=== PATIENT | female | born 1970 | race Two or more races ===

== ENCOUNTER 2024-11-22 11:58 | Emergency (ER) | payer MEDICARE, MEDICAID ==
[~2024-11-22] VITALS: Ht 149.9 cm; Wt 96.9 kg
[2024-11-22 12:07] VITALS: BP 111/68; PULSE 74; RESP 18; TEMP 98.3; O2SAT 95
--- NOTE | 2024-11-22 14:40 | ED.PDOC ---
History of Present Illness HPI Comments 54 year old female presents to the ED with a chief complaint of head injury s/p fall onset last night around 22:30. Patient states went to the restroom, was dizzy, fell backwards onto her back, hit LT side head. She is currently experiencing headache, back pain, generalized muscle aches. PMHx vertigo. Robert es any LOC, nausea, vomiting, diarrhea, fever, chills, dysuria, hematuria, chest pain, shortness of breath. No other symptoms or modifying factors present at this time. Chief Complaint: Fall Injury Time Seen by MD: 14:40 Reviewed Notes: Medications, Allergies Allergies: Coded Allergies: NO KNOWN ALLERGIES (Unverified , 11/22/24) Information Source: Friend Mode of Arrival: Ambulatory Severity: Moderate Timing: Hours Duration: Since onset Prehospital treatment: None Past Medical History PAST MEDICAL HISTORY: Denies Past Medical History (Other): vertigo Surgical History: Denies all surgeries STUDENT COUNSELLOR History: No Pertinent STUDENT COUNSELLOR History Family History Family History: Reviewed,noncontributory to illness, No family hx of Cancer, No family hx of DM, No family hx of Heart bryce, No family hx of HTN, No family hx ofKidney bryce, No family hx of Liver bryce, No family hx of Lung bryce, No family hx of Stroke Social History Smoker: Non-Smoker Alcohol: Denies ETOH Use Drugs: Denies Drug Use Lives In: Home Constitutional: denies: chills, diaphoresis, fatigue, fever, malaise, sweats, weakness, others EENTM: reports: others (head injury ); denies: blurred vision, double vision, ear bleeding, ear discharge, ear drainage, ear pain, ear ringing, eye pain, eye redness, hearing loss, mouth pain, mouth swelling, nasal discharge, nose bleeding, nose congestion, nose pain, photophobia, tearing, throat pain, throat swelling, voice changes Respiratory: denies: cough, hemoptysis, orthopnea, SOB at rest, shortness of breath, SOB with excertion, stridor, wheezing, others Cardiovascular: denies: chest pain, dizzy spells, diaphoresis, Dyspnea on exertion, edema, irregular heart beat, left arm pain, lightheadedness, palpitations, PND, syncope, others Gastrointestinal: denies: abdomen distended, abdominal pain, blood streaked bowels, constipated, diarrhea, dysphagia, difficulty swallowing, hematemesis, melena, nausea, poor appetite, poor fluid intake, rectal bleeding, rectal pain, vomiting, others Genitourinary: denies: abnormal vagina bleeding, burning, dyspareunia, dysuria, flank pain, frequency, hematuria, incontinence, pain, , vagina discharge, urgency, others Neurological: reports: dizziness; denies: fainting, headache, left sided numbness, left sided weakness, numbness, paresthesia, pre-existing deficit, right sided numbness, right sided weakness, seizure, speech problems, tingling, tremors, weakness, others Musculoskeletal: reports: back pain; denies: gout, joint pain, joint swelling, muscle pain, muscle stiffness, neck pain, others Integumetry: denies: bruises, change in color, change in hair/nails, dryness, laceration, lesions, lumps, rash, wounds, others Allergic/Immunocompromised: denies: Difficulty Healing, Frequent Infections, Hives, Itching, others Hematologic/Lymphatic: denies: anemia, blood clots, easy bleeding, easy bruising, swollen glands, others Endocrine: denies: excessive hunger, excessive sweating, excessive thirst, excessive urination, flushing, intolerance to cold, intolerance to heat, unexplained weight gain, unexplained weight loss, others Psychiatric: denies: anxiety, bipolar disorder, depression, hopeless, panic disorder, schizophrenia, sleepless, suicidal, others All Other Systems: Reviewed and Negative Physical Exam General Appearance: Moderate Distress, Obese HEENT: Normal ENT Inspection, PERRL/EOMI, Pharynx Normal, TMs Normal, Other (Pain to her occipital scalp after falling she had her head) Neck: Full Range of Motion, Limited Range of Motion, Normal, Normal Inspection, Tender Lateral Respiratory: Chest Non-Tender, Lungs Clear, No Accessory Muscle Use, No Respiratory Distress, Normal Breath Sounds Cardiovascular: No Edema, No JVD, No Murmur, No Gallop, Normal Peripheral Pulses, Regular Rate/Rhythm Breast Exam: Deferred Gastrointestinal: No Organomegaly, Non Tender, No Pulsatile Mass, Normal Bowel Sounds, Soft Genitalia: Deferred Pelvic: Deferred Rectal: Deferred Extremities: No calf tenderness, Normal capillary refill, Normal inspection, Normal range of motion, Non-tender, No pedal edema Musculoskeletal : Location: Bilateral Extremity Location: Back Apperance: Limited ROM, Tenderness: Moderate Neurologic: Alert, pyridine recovery operator II-XII nml as Tested, No Motor Deficits, Normal Affect, Normal Mood, No Sensory Deficits Cerebellar Function: Normal Reflexes: Normal Skin: Dry, Normal Color, Warm Peripheral Pulses: 1+ carotid (R), 1+ carotid (L) Lymphatic: No Adenopathy Was a procedure done? Was a procedure done?: No Differential Dx Considerations may include: Hematoma to head history of CVA vertigo cervical muscle spasm low back supplies most sprain X-Ray, Labs, Meds, VS Vital Signs Date Time Temp Pulse Resp B/P (MAP) Pulse Ox O2 Delivery O2 Flow Rate FiO2 11/22/24 12:07 98.3 74 18 111/68 95 98.3 X-Ray, Labs, Meds, VS Comment Course in the [employer] eventful patient came in because of the fall in the bathroom she fell and hit her back of her leg after dizziness patient had had a stroke before CT of the head is normal CT of the C-spine show spasm Lumbar spine shows DJD Patient will be discharged home to follow up with your PCP Time of 1ST Reevaluation: 15:10 Reevaluation 1ST: Unchanged Patient Education/Counseling: Diagnosis, Treatment, Prognosis Family Education/Counseling: No Family Present SEPSIS Sepsis Screen Date sepsis recognized/suspect: Nov 22, 2024 Time Sepsis recognized/suspect: 1200 Recent Procedure: No On Antibiotic Therapy: No Respiratory Rate >20: No Heart Rate >90: No Temp<36 C (96.8 F) or >38.3 C: No SBP <90 or MAP <65 mmHG: No New Acute Mental Status Change: No Is the patient on CPAP, BIPAP,: No Physician Orders Ls Spine Wo Contrast (11/22/24 14:40) Head Without Contrast (11/22/24 14:40) Cervical Without Contrast (11/22/24 14:40) Vital Signs Date Time Temp Pulse Resp B/P (MAP) Pulse Ox O2 Delivery O2 Flow Rate FiO2 11/22/24 12:07 98.3 74 18 111/68 95 98.3 Departure 1 Departure Time of Disposition: 16:02 Impression: Primary Impression: Fall at home Qualified Codes: W19.XXXA - Unspecified fall, initial encounter; Y92.009 - Unspecified place in unspecified non-institutional (private) residence as the place of occurrence of the external cause Additional Impressions: Contusion of scalp Qualified Codes: S00.03XA - Contusion of scalp, initial encounter Cervical paraspinal muscle spasm Contusion of lumbar spinal region Disposition: HOME / SELF CARE / HOMELESS Condition: Fair Additional Instructions: Hot showers and rest e-Prescriptions Cyclobenzaprine Hcl (Cyclobenzaprine Hcl) 5 Mg Tab 5 MG PO TID for 10 Days, #30 TAB Prov: TAMMY LLANOS MD 11/22/24 Diclofenac Potassium (Diclofenac Potassium) 50 Mg Tab 1 TAB PO TIDP for 10 Days, #30 TAB Prov: TAMMY LLANOS MD 11/22/24 Discharged With: Self Critical Care Note Critical Care Time?: No Stability Stability form required: No Heart Score Heart Score: Heart Score Response (Comments) Value History N/A 0 EKG N/A 0 Age 45-64 1 Risk Factors 1 or 2 risk factors 1 Troponin N/A 0 Total 2 I personally scribed for TAMMY LLANOS MD ([email or web address]) on 11/22/24 at 14:40. Electronically submitted by Estephania Mcelroy ([email or web address]). TAMMY LLANOS MD Nov 22, 2024 14:40
--- NOTE | 2024-11-22 15:24 | DVH ---
EXAM: CT CERVICAL WITHOUT CONTRAST INDICATION: fall EXAM DATE: 11/22/2024 02:44 PM COMPARISON: None TECHNIQUE: Multiple axial CT images of the cervical spine were obtained using bone algorithm. Axial a nd coronal reformatting was done. Bone and soft tissue windows were reviewed. Radiation Dose Information: CT Dose: CTDI volume is 31.46 mGy. Dose-length product is 809.26 mGy*cm FINDINGS: The cervical alignment is intact. No acute cervical spine fracture is identified. The vertebral body heights are intact. No suspicious osseous lesions are identified. Reversal normal cervical lordotic curve. This may be due to patient positioning or muscle spasm.. There is no prevertebral soft tissue swelling. IMPRESSION: 1. No evidence of acute cervical spine fracture or traumatic malalignment. 2. Reversal of the normal cervical lordotic curve. All CT scans at this medical facility are performed using dose modulation techniques as appropriate t o a performed exam including the following: Automated exposure control was utilized; adjustment of th e MA and/or KV according to patient size; and use of iterative reconstruction technique.
--- NOTE | 2024-11-22 15:24 | DVH ---
Procedure: CT HEAD WITHOUT CONTRAST Study Date and Requested Time: 11/22/2024 02:44 PM History: fall Comparison: None Dose: CTDI: 35.75 mGy DLP: 1473.96 mGycm Technique: Multiplanar images obtained through the brain without intravenous contrast. Findings: Normal brain volume and formation. No hemorrhages, masses, mass effect, midline shift, herniation or cytotoxic edema following a large v ascular territory. No intra-axial or extra-axial fluid collections. No evidence of hydrocephalus. The basal cisterns are patent. The pituitary gland, sella and parasellar regions are unremarkable. The cerebellar tonsils are in nor mal position. The cerebellum is unremarkable. The orbits and globes are unremarkable. The paranasal sinuses and mastoids are clear. There are no wo rrisome calvarial lesions. Nonspecific foci of Hyperdensities within the scalp. Impression: No evidence of acute intracranial abnormality.
--- NOTE | 2024-11-22 15:52 | DVH ---
CT LS SPINE WO CONTRAST Indication: fall EXAM DATE: 11/22/2024 02:44 PM COMPARISON: None TECHNIQUE: CT of the lumbar spine without intravenous contrast. RADIATION DOSE: CTDIvol: 36 mGy, DLP: 3474 mGy*cm FINDINGS: The lumbar vertebral body heights are maintained. Vejn-ir-yqnyhuti multilevel disc space narrowing. Pezx-qz-ojztbecj facet hypertrophic changes. Alignment grossly preserved. Pgnp-kq-ozmdkhwt bilateral sacroiliac degenerative joint disease. Heterogeneous uterus with leiomyomas IMPRESSION: Reue-gj-atjsfjqa lumbar degenerative disc disease. Heterogeneous uterus with uterine leiomyomas. This can be further characterized on pelvic ultrasound .
[2024-11-22] MEDS ORDERED: DICL50TA2 PO (16:05)
[2024-11-22] MEDS ORDERED: CYCL-837 PO (16:05)
[2024-11-22] MEDS ORDERED: CYCL-839 PO (16:18)
[2024-11-22] MEDS ORDERED: DICL50TA5 PO (16:18)
== END 2024-11-22 16:25 | disposition home or self-care (01) ==
LOC: ER 11:58
DX: S00.03XA Contusion of scalp, initial encounter (principal); S30.0XXA Contusion of lower back and pelvis, initial encounter; W18.39XA Other fall on same level, initial encounter; Y93.89 Activity, other specified; Y92.091 Bathroom in other non-institutional residence as the place of occurrence of the external cause; Y99.8 Other external cause status
CPT/HCPCS: 70450; 72125; 72131

== ENCOUNTER 2025-03-21 14:35 | Emergency (ER) | payer MEDICARE, MEDICAID ==
[~2025-03-21] VITALS: Ht 152.4 cm; Wt 98.3 kg
[~2025-03-21 14:35] MED LIST: CYCL-839 PO; DICL50TA5 PO
--- NOTE | 2025-03-21 15:15 | ED.PDOC ---
Musculoskeletal HPI Comments This is a 54 year old female presenting to the ED with chief complaint of right leg pain and swelling. Patient reports that she has been experiencing worsening right leg pain and swelling for the past 2 days. Patient relays that she has had a previous CVA 3 years ago that has affected her left side, experiencing similar pain and swelling to her left leg at the time. Patient notes associated SOB today. Patient states she is currently on ASA. Patient denies any numbness, weakness, tingling, fall, injury, chest pain, headache, or fall injury. Chief Complaint: Lower Extremity Time Seen by MD: 15:13 Reviewed Notes: Nurses Notes, Medications, Allergies Allergies: Coded Allergies: NO KNOWN ALLERGIES (Unverified , 11/22/24) Home Meds Active Scripts Diclofenac Sodium (Diclofenac Sodium Dr) 50 Mg Tab, 50 MG PO TID PRN for 10 Days, #30 TAB Prov:TAMMY LLANOS MD 11/22/24 Cyclobenzaprine Hcl (Cyclobenzaprine Hcl) 10 Mg Tab, 10 MG PO TID for 10 Days, #30 TAB Prov:TAMMY LLANOS MD 11/22/24 Information Source: Patient Mode of Arrival: Ambulatory Location: Right Extremity Location: Knee Timing: Days Prehospital treatment: None Severity: Moderate Able to Move Extremity: Yes Bear Weight: Limited Pain: Moderate Mechanism: Spontaneous Circumstances: Spontaneous Onset of Symptoms: Spontaneous Symptoms: Swelling, Pain DVT Risk Factors: NONE Last Tetanus: Unknown Past Medical History PAST MEDICAL HISTORY: CVA Surgical History: Denies all surgeries RAILCAR CARPENTER History: No Pertinent RAILCAR CARPENTER History Family History Family History: Reviewed,noncontributory to illness, No family hx of Cancer, No family hx of DM, No family hx of Heart bryce, No family hx of HTN, No family hx ofKidney bryce, No family hx of Liver bryce, No family hx of Lung bryce, No family hx of Stroke Social History Smoker: Non-Smoker Alcohol: Denies ETOH Use Drugs: Denies Drug Use Lives In: Home Constitutional: denies: chills, diaphoresis, fatigue, fever, malaise, sweats, weakness, others EENTM: denies: blurred vision, double vision, ear bleeding, ear discharge, ear drainage, ear pain, ear ringing, eye pain, eye redness, hearing loss, mouth pain, mouth swelling, nasal discharge, nose bleeding, nose congestion, nose pain, photophobia, tearing, throat pain, throat swelling, voice changes, others Respiratory: denies: cough, hemoptysis, orthopnea, SOB at rest, shortness of breath, SOB with excertion, stridor, wheezing, others Cardiovascular: denies: chest pain, dizzy spells, diaphoresis, Dyspnea on exertion, edema, irregular heart beat, left arm pain, lightheadedness, palpitations, PND, syncope, others Gastrointestinal: denies: abdomen distended, abdominal pain, blood streaked bowels, constipated, diarrhea, dysphagia, difficulty swallowing, hematemesis, melena, nausea, poor appetite, poor fluid intake, rectal bleeding, rectal pain, vomiting, others Genitourinary: denies: abnormal vagina bleeding, burning, dyspareunia, dysuria, flank pain, frequency, hematuria, incontinence, pain, , vagina discharge, urgency, others Neurological: denies: dizziness, fainting, headache, left sided numbness, left sided weakness, numbness, paresthesia, pre-existing deficit, right sided numbness, right sided weakness, seizure, speech problems, tingling, tremors, weakness, others Musculoskeletal: reports: others (Right leg swelling and pain); denies: back pain, gout, joint pain, joint swelling, muscle pain, muscle stiffness, neck pain Integumetry: denies: bruises, change in color, change in hair/nails, dryness, laceration, lesions, lumps, rash, wounds, others Allergic/Immunocompromised: denies: Difficulty Healing, Frequent Infections, Hives, Itching, others Hematologic/Lymphatic: denies: anemia, blood clots, easy bleeding, easy bruising, swollen glands, others Endocrine: denies: excessive hunger, excessive sweating, excessive thirst, excessive urination, flushing, intolerance to cold, intolerance to heat, unexplained weight gain, unexplained weight loss, others Psychiatric: denies: anxiety, bipolar disorder, depression, hopeless, panic disorder, schizophrenia, sleepless, suicidal, others All Other Systems: Reviewed and Negative Physical Exam General Appearance: No Apparent Distress, Normal HEENT: Normal ENT Inspection, Pharynx Normal, TMs Normal Neck: Full Range of Motion, Non-Tender, Normal, Normal Inspection Respiratory: Chest Non-Tender, Lungs Clear, No Accessory Muscle Use, No Respiratory Distress, Normal Breath Sounds Cardiovascular: No Edema, No JVD, No Murmur, No Gallop, Normal Peripheral Pulses, Regular Rate/Rhythm Breast Exam: Deferred Gastrointestinal: No Organomegaly, Non Tender, No Pulsatile Mass, Normal Bowel Sounds, Soft Genitalia: Deferred Pelvic: Deferred Rectal: Deferred Extremities: No calf tenderness, Normal capillary refill, Normal inspection, Normal range of motion, Non-tender, No pedal edema Musculoskeletal : Location: Right Extremity Location: Leg Apperance: Other (Mild asymmetric right leg swelling over knee with no overlying skin changes.) Neurologic: Alert, animal stunner II-XII nml as Tested, No Motor Deficits, Normal Affect, Normal Mood, No Sensory Deficits, Other (Ambulates with a cane which is baseline) Cerebellar Function: Normal Reflexes: Normal Skin: Dry, Normal Color, Warm Lymphatic: No Adenopathy Was a procedure done? Was a procedure done?: No Differential Diagnosis EXT Differential Diagnosis: Deep Vein Thrombosis, DJD Other Differential Diagnosis Arthritis X-Ray, Labs, Meds, VS Vital Signs Date Time Temp Pulse Resp B/P (MAP) Pulse Ox O2 Delivery O2 Flow Rate FiO2 03/21/25 17:19 98.4 74 16 106/71 (83) 96 98.4 03/21/25 14:42 97.8 72 15 163/94 94 97.8 Lab Test 03/21/25 15:57 Range/Units White Blood Count 6.2 4.4-10.8 10^3/uL Red Blood Count 4.51 4.0-5.20 10^6/uL Hemoglobin 14.1 12.2-16.2 g/dL Hematocrit 41.6 36.0-46.0 % Mean Corpuscular Volume 92.3 80.0-100.0 fL Mean Corpuscular Hemoglobin 31.4 28.0-32.0 pg Mean Corpuscular Hemoglobin Concent 34.0 32.0-36.0 g/dL Red Cell Distribution Width 13.7 11.8-14.3 % Platelet Count 296 140-450 10^3/uL Mean Platelet Volume 7.0 6.9-10.8 fL Neutrophils (%) (Auto) 64.4 37.0-80.0 % Lymphocytes (%) (Auto) 23.5 10.0-50.0 % Monocytes (%) (Auto) 7.1 0.0-12.0 % Eosinophils (%) (Auto) 4.1 0.0-7.0 % Basophils (%) (Auto) 0.9 0.0-2.0 % Neutrophils # (Auto) 4.0 1.6-8.6 10 ^3/uL Lymphocytes # (Auto) 1.5 0.4-5.4 10 ^3/uL Monocytes # (Auto) 0.4 0-1.3 10 ^3/uL Eosinophils # (Auto) 0.3 0-0.8 10 ^3/uL Basophils # (Auto) 0.1 0-0.2 10 ^3/uL Nucleated Red Blood Cells 0.0 % Sodium Level 141 136-145 mmol/L Potassium Level 4.0 3.5-5.1 mmol/L Chloride Level 107 98-107 mmol/L Carbon Dioxide Level 27 20-31 mmol/L Anion Gap 7 5-15 Blood Urea Nitrogen 14 9-23 mg/dL Creatinine 0.91 0.550-1.02 mg/dL Glomerular Filtration Rate Calc 75 >90 mL/min BUN/Creatinine Ratio 15.4 10.0-20.0 Serum Glucose 96 74-106 mg/dL Calcium Level 9.2 8.7-10.4 mg/dL Total Bilirubin 0.4 0.2-1.0 mg/dL Aspartate Amino Transferase (AST) 19 13-40 U/L Alanine Aminotransferase (ALT) 19 7-40 U/L Alkaline Phosphatase 88 46-116 U/L B-Type Natriuretic Peptide 17.59 0-100 pg/mL Total Protein 7.1 5.7-8.2 g/dL Albumin 4.4 3.2-4.8 g/dL Current Medications Medications (Trade) Dose Ordered Sig/Jaime Route Start Time Stop Time Status Last Admin Ketorolac Tromethamine (Toradol Injection) 30 mg ONCE ONCE IM 03/21/25 15:45 03/21/25 15:46 DC 03/21/25 17:12 Acetaminophen (Tylenol Tablet Or Capsule) 1,000 mg ONCE ONCE PO 03/21/25 15:45 03/21/25 15:46 DC 03/21/25 17:12 Time of 1ST Reevaluation: 16:12 Reevaluation 1ST: Unchanged Patient Education/Counseling: Diagnosis, Treatment Family Education/Counseling: Diagnosis, Treatment Departure 1 Departure Time of Disposition: 19:12 (54-year-old female presenting for pain mostly along the right lower extremity and numerous other additional symptoms. Patient reporting some swelling noted of the right lower extremity, given the reports of asymmetric swelling a duplex ultrasound was performed which is negative for DVT. Patient has swelling appears to have originated at the knee, x-ray of the right knee was performed which shows that the patient has moderate tricompartmental osteoarthritis which could explain the patient's pain, symptoms. Patient has no overlying skin changes to suggest a cellulitis. Patient also was reporting some lower extremity edema and for this reason basic labs were obtained. CBC with no evidence of critical leukocytosis or significant anemia. Metabolic panel with no evidence of acute electrolyte abnormalities or kidney dysfunction that would be causing peripheral edema. Liver function tests with no evidence of liver dysfunction that could be contributing to peripheral edema. Chest x-ray also with no evidence of any increased pulmonary vascular congestion. Patient was given IM Toradol, oral Tylenol for analgesia with some improvement. Patient ambulating steadily here. She is stable for discharge further outpatient management. Advised to take NSAIDs as needed for discomfort. Advised to follow up with primary care doctor she may need outpatient shots or physical therapy regarding her knee pain and swelling.) Impression: Primary Impression: Pain and swelling of right lower leg Additional Impressions: Arthritis of right knee Effusion of right knee Disposition: 01 HOME / SELF CARE / HOMELESS Condition: Stable Additional Instructions: A duplex ultrasound was performed which shows no evidence of any blood clots within your leg. An x-ray of her knee was performed which shows a you have moderate osteoarthritis and a knee effusion which is likely the cause of your knee pain and swelling. Please take Tylenol, ibuprofen as needed for discomfort. Follow up with your outpatient primary care doctor as you may need injections into her knee, possible physical therapy. Discharged With: Self Critical Care Note Critical Care Time?: No Stability Stability form required: No Heart Score Heart Score: Heart Score Response (Comments) Value History N/A 0 EKG N/A 0 Age N/A 0 Risk Factors N/A 0 Troponin N/A 0 Total 0 I personally scribed for GYPSY PEDRO MD ([email or web address]) on 03/21/25 at 15:15. Electronically submitted by Joe Concepcion ([email or web address]). GYPSY PEDRO MD Mar 21, 2025 15:15
[2025-03-21 16:08] LABS: Hematocrit 41.6 % (36.0-46.0); Hemoglobin 14.1 g/dL (12.2-16.2); Mean Corpuscular Hemoglobin 31.4 pg (28.0-32.0); Mean Corpuscular Volume 92.3 fL (80.0-100.0); Nucleated Red Blood Cells % 0.0 %
--- NOTE | 2025-03-21 16:21 | DVH ---
Right lower extremity venous duplex CLINICAL HISTORY: RLE pain swelling COMPARISON: None TECHNIQUE: Duplex Doppler evaluation of the deep venous systems of right lower extremities from the common femoral veins to the popliteal veins including color Doppler and spectral/pulsed waveform analysis was performed. FINDINGS: RIGHT SIDE: The common femoral vein demonstrates appropriate compressibility and waveform variability. There is compressibility/patency of the great saphenous vein at the proximal thigh. The femoral vein demonstrates appropriate compressibility and waveform variability. The deep femoral vein demonstrates appropriate compressibility and waveform variability. The popliteal vein demonstrates appropriate compressibility and waveform variability. There is normal compressibility at the tibioperoneal trunk. IMPRESSION: 1. No right femoropopliteal venous thrombosis.
--- NOTE | 2025-03-21 16:21 | DVH ---
EXAM: XY CHEST XRAY 1 VIEW INDICATION: peripheral edema TECHNIQUE: Single frontal view of the chest was obtained COMPARISON: None FINDINGS: Lines and Tubes: None Lungs: No focal consolidation. Pleura: No effusion. No pneumothorax. Cardiomediastinal contours: Unremarkable Bones: No acute osseous abnormality. IMPRESSION: No acute cardiopulmonary disease.
--- NOTE | 2025-03-21 16:22 | DVH ---
CLINICAL INDICATION: right knee pain and swelling TECHNIQUE: 3 radiographic views of the right knee were obtained. COMPARISON: None FINDINGS/IMPRESSION: There is no evidence of acute fracture or dislocation. Moderate tricompartmental knee joint osteoarthrosis. Ossific densities in the knee joint space are favored to represent intra-articular joint bodies. Small knee joint effusion. There is no radiopaque foreign body.
[2025-03-21 16:26] LABS: Alanine Aminotransferase 19 U/L (7-40); Albumin 4.4 g/dL (3.2-4.8); Alkaline Phosphatase 88 U/L (46-116); Anion Gap 7 (5-15); BUN/Creatinine Ratio 15.4 (10.0-20.0); Bilirubin, Total 0.4 mg/dL (0.2-1.0); Blood Urea Nitrogen 14 mg/dL (9-23); Calcium 9.2 mg/dL (8.7-10.4); Carbon Dioxide 27 mmol/L (20-31); Chloride 107 mmol/L (98-107); Glucose 96 mg/dL (74-106); Potassium 4.0 mmol/L (3.5-5.1); Sodium 141 mmol/L (136-145); Total Protein 7.1 g/dL (5.7-8.2)
[2025-03-21] MEDS: KETOROLAC TROMETH 60MG/2ML VIAL IM ONE (17:12)
[2025-03-21] MEDS: ACETAMINOPHEN 500 MG TAB or CAP PO ONE (17:12)
[2025-03-21 19:19] VITALS: BP 110/70; PULSE 74; RESP 16; TEMP 98.5; O2SAT 96
== END 2025-03-21 19:30 | disposition home or self-care (01) ==
LOC: ER 14:35
DX: M17.11 Unilateral primary osteoarthritis, right knee (principal); M25.461 Effusion, right knee; Z86.73 Personal history of transient ischemic attack (TIA), and cerebral infarction without residual deficits
CPT/HCPCS: 36415; 71045; 73562; 80053; 83880; 85025; 93971; 96372; 99285; J1885